=== PATIENT | male | born 1985 | race Caucasian/White ===

== ENCOUNTER 2019-01-31 08:25 | Emergency (ER) | payer MEDICAID ==
[~2019-01-31] VITALS: Ht 190.5 cm; Wt 151.4 kg
[~2019-01-31 08:25] MED LIST: CYCL-1 PO; HYDR-3965 PO; PENI500T2 PO
[2019-01-31 09:18] LABS: BASOPHILS % (AUTO) 0.3 % (0-1); EOSINOPHILS # (AUTO) 0.1 X10'3 (0-0.9); EOSINOPHILS % (AUTO) 0.5 % (0-6); HEMATOCRIT 44.7 % (42.0-52.0); HEMOGLOBIN 15.6 g/dl (14.0-17.9); LYMPHOCYTES % (AUTO) 7.4 % (21-51); MEAN CORPUSCULAR HEMOGLOBIN 29.5 PG (27.0-31.0); MEAN CORPUSCULAR HGB CONC 34.9 g/dL (33.0-36.5); MEAN CORPUSCULAR VOLUME 84.6 FL (78-98); MEAN PLATELET VOLUME 9.9 FL (7.4-10.4); MONOCYTES # (AUTO) 1.1 X10'3 (0-0.9); NEUTROPHILS # (AUTO) 11.7 X10'3 (1.8-7.7); NEUTROPHILS % (AUTO) 83.8 % (42-75); PLATELET COUNT 224 X10'3 (140-440); RED BLOOD COUNT 5.28 X10'6 (4.70-6.10); RED CELL DISTRIBUTION WIDTH 13.1 % (11.5-14.5)
[2019-01-31 09:25] LABS: PARTIAL THROMBOPLASTIN TIME 32 SECONDS (22-32)
[2019-01-31 09:36] LABS: ALANINE AMINOTRANSFERASE 33 U/L (12-78); ALBUMIN 3.6 G/DL (3.4-5.0); ALBUMIN/GLOBULIN RATIO 0.8 (1.1-1.5); ALKALINE PHOSPHATASE 89 IU/L (46-116); ANION GAP 14 (8-16); ASPARTATE AMINO TRANSFERASE 14 U/L (10-37); BILIRUBIN,TOTAL 1.1 MG/DL (0.1-1.0); BLOOD UREA NITROGEN 12 MG/DL (7-18); CALCIUM 9.1 MG/DL (8.5-10.1); CHLORIDE 104 MMOL/L (99-107); GLUCOSE 114 MG/DL (70-104); POTASSIUM 3.9 MMOL/L (3.5-5.1); SODIUM 135 MMOL/L (135-145); TOTAL CARBON DIOXIDE 17.5 MMOL/L (24-32); TOTAL PROTEIN 8.2 G/DL (6.4-8.2); eGFR 69 ML/MIN
[2019-01-31 09:46] LABS: GLUCOSE, URINE NEGATIVE (Neg); KETONES,URINE 40 mg/dl (Neg); LEUKOCYTE ESTERASE ,URINE NEGATIVE (Neg); NITRITES, URINE NEGATIVE (Neg); OCCULT BLOOD,URINE NEGATIVE (Neg); PH,URINE 6.5 (4.8-8.0); PROTEIN,URINE TRACE mg/dl (Neg)
[2019-01-31 09:47] LABS: UA COLLECTION TYPE URINAL
[2019-01-31 09:48] LABS: CLARITY,URINE SLIGHTLY CLOUDY (Clear); COLOR,URINE Amber (Yellow)
--- NOTE | 2019-01-31 09:51 | NUR ---
gaspersara has not been feeling well: right throat neck pain, not eating or drinking well for 2-3 days: states difficulty swallowing, right neck moderately swollen urine dark pauly, sepsis protocol ordered, discussed plan of care with md including weight and fluids
--- NOTE | 2019-01-31 09:52 | NUR ---
dr mccall stated "no fluids"
[2019-01-31 09:59] LABS: SQUAMOUS EPITHELIAL CELL,UR MODERATE /LPF (FEW)
[2019-01-31 10:00] LABS: BACTERIA,URINE FEW /HPF (Neg); HYALINE CASTS 0-3 /LPF (NEGATIVE); MUCUS STRANDS MODERATE /LPF (Neg); WBC,URINE 0-4 /HPF (0-4)
[2019-01-31] MEDS ORDERED: iohexol 300mg/ml 100ml inj. ONE (10:06)
--- NOTE | 2019-01-31 10:18 | NUR ---
to ct scan
[2019-01-31] MEDS ORDERED: dexamethasone sod phosphate 10mg/ml inj IV STA (11:19)
[2019-01-31] MEDS ORDERED: CLINDAMYCIN/D5W 900mg/50ml 50 ML IV ONE (11:20)
[2019-01-31] MEDS ORDERED: normal saline 1000ml 1,000 ML IV ONE ×2 (12:00)
[2019-01-31] MEDS ORDERED: metroNIDAZOLE-Flagyl 500mg/NS 100 ML IV STA (12:03)
[2019-01-31] MEDS ORDERED: ondansetron/PF 4mg/2ml inj IV ONE (12:05)
[2019-01-31] MEDS ORDERED: morphine 4 MG/ML inj SYRINge IV ONE ×2 (12:05→13:05)
[2019-01-31] MEDS ORDERED: normal saline 1000ML IV soln IVB ONE (12:05)
--- NOTE | 2019-01-31 14:23 | NUR ---
Mother at bedside, patient sweaty, elevated temp, dr nikky mejia
[2019-01-31] MEDS ORDERED: ketorolac trometh. 30mg/ml inj. IV ONE (14:35)
[2019-01-31] MEDS ORDERED: ketorolac tromethamine 15mg/ml inj. IV ONE (14:40)
--- NOTE | 2019-01-31 14:48 | NUR ---
SPOKE TO CHAZ FROM [facility] CALLED FROM [phone]: PATIENT GOING TO [facility] ROOM 226A PHONE FOR REPORT [phone]
--- NOTE | 2019-01-31 14:57 | NUR ---
mother long [phone]
--- NOTE | 2019-01-31 15:13 | NUR ---
CALLING REPORT [phone]: Keny maynard 2e
--- NOTE | 2019-01-31 15:20 | NUR ---
patient going to [facility] room 226A, report given to Keny maynard ON
--- NOTE | 2019-01-31 16:19 | NUR ---
CALLED [facility] FOR ETA UPDATE. INFORMED THAT PATIENT HAS A SCHEDULED TRANSPORT FOR 1700.
--- NOTE | 2019-01-31 17:31 | NUR ---
ADDITIONAL CALL TO [facility], TOLD THAT WE DID NOT HAVE A SCHEDULE TRANSPORT AT 1700. STILL AWAITING CALLS TO BE AT LEVELS FOR TRANSFER. NOT ETA.
--- NOTE | 2019-01-31 18:19 | NUR ---
EMS HERE TO TRANSFER PATIENT TO [facility]. REPORT TO EMS PERSONNEL. PATIENT DEPARTED FROM ER PER CHIRAG, WITH EMS PERSONNEL IN GOOD CONDITION. MOM LEFT AND WILL BE DRIVING TO [facility] TO MEET THE AMBULANCE, AND HER SON.
--- NOTE | 2019-01-31 18:23 | NUR ---
jaqui perez via ems report to coppersmith apprentice
[2019-01-31 18:25] VITALS: BP 121/69
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
== END 2019-01-31 18:28 | disposition short-term general hospital (02) ==
LOC: ER 08:25
DX: R59.1 Generalized enlarged lymph nodes (principal); R06.02 Shortness of breath; E66.01 Morbid (severe) obesity due to excess calories; Z68.41 Body mass index [BMI] 40.0-44.9, adult; Z79.899 Other long term (current) drug therapy
CPT/HCPCS: 36415; 70491; 71045; 80053; 81001; 83605; 84145; 85025; 85610; 85730; 87040; 96365; 96368; 96375; 96376; 99285; J1100; J1885; J2270; J2405; J3490; J7030; Q9967

== ENCOUNTER 2019-02-03 12:17 | Emergency (ER) | payer MEDICAID ==
[~2019-02-03] VITALS: Ht 190.5 cm; Wt 153.2 kg
[2019-02-03 13:36] LABS: CLARITY,URINE CLOUDY (Clear); COLOR,URINE BROWN (Yellow); GLUCOSE, URINE NEGATIVE (Neg); KETONES,URINE NEGATIVE (Neg); LEUKOCYTE ESTERASE ,URINE NEGATIVE (Neg); NITRITES, URINE NEGATIVE (Neg); OCCULT BLOOD,URINE LARGE (Neg); PH,URINE 6.5 (4.8-8.0); PROTEIN,URINE TRACE mg/dl (Neg); UA COLLECTION TYPE NON-SPECIFIED
[2019-02-03] MEDS ORDERED: ketorolac trometh inj. 60 MG/2 ML VIAL IM ONE (13:40)
[2019-02-03 13:43] LABS: RBC,URINE TNTC /HPF (0-2); WBC,URINE 0-4 /HPF (0-4)
[2019-02-03 13:44] LABS: BACTERIA,URINE NONE SEEN /HPF (Neg); MUCUS STRANDS FEW /LPF (Neg); SQUAMOUS EPITHELIAL CELL,UR FEW /LPF (FEW)
[2019-02-03 14:23] LABS: BASOPHILS % (AUTO) 0.4 % (0-1); EOSINOPHILS % (AUTO) 0.4 % (0-6); HEMATOCRIT 43.6 % (42.0-52.0); HEMOGLOBIN 14.8 g/dl (14.0-17.9); LYMPHOCYTES # (AUTO) 1.3 X10'3 (1.1-4.8); LYMPHOCYTES % (AUTO) 16.3 % (21-51); MEAN CORPUSCULAR HEMOGLOBIN 28.8 PG (27.0-31.0); MEAN CORPUSCULAR VOLUME 84.6 FL (78-98); MEAN PLATELET VOLUME 9.8 FL (7.4-10.4); MONOCYTES # (AUTO) 0.6 X10'3 (0-0.9); NEUTROPHILS % (AUTO) 75.9 % (42-75); PLATELET COUNT 270 X10'3 (140-440); RED BLOOD COUNT 5.15 X10'6 (4.70-6.10); RED CELL DISTRIBUTION WIDTH 13.3 % (11.5-14.5); WHITE BLOOD COUNT 7.9 X10'3 (4.5-11.0)
[2019-02-03] MEDS ORDERED: FLO0.4C PO (14:33)
[2019-02-03 14:38] LABS: ALANINE AMINOTRANSFERASE 106 U/L (12-78); ALBUMIN 3.2 G/DL (3.4-5.0); ALBUMIN/GLOBULIN RATIO 0.7 (1.1-1.5); ALKALINE PHOSPHATASE 78 IU/L (46-116); ANION GAP 11 (8-16); ASPARTATE AMINO TRANSFERASE 41 U/L (10-37); BILIRUBIN,TOTAL 0.3 MG/DL (0.1-1.0); BLOOD UREA NITROGEN 12 MG/DL (7-18); BUN/CREATININE RATIO 10.8 (5.4-32.0); CHLORIDE 108 MMOL/L (99-107); CREATININE 1.11 MG/DL (0.60-1.10); GLUCOSE 92 MG/DL (70-104); POTASSIUM 3.6 MMOL/L (3.5-5.1); SODIUM 140 MMOL/L (135-145); TOTAL CARBON DIOXIDE 21.1 MMOL/L (24-32); TOTAL PROTEIN 7.9 G/DL (6.4-8.2); eGFR 76 ML/MIN
[2019-02-03 15:12] VITALS: BP 163/78
== END 2019-02-03 15:13 | disposition home or self-care (01) ==
LOC: ER 12:18
DX: R31.9 Hematuria, unspecified (principal); R10.9 Unspecified abdominal pain; R61 Generalized hyperhidrosis; R68.83 Chills (without fever); J45.909 Unspecified asthma, uncomplicated; Z79.899 Other long term (current) drug therapy
CPT/HCPCS: 36415; 74176; 80053; 81001; 85025; 96372; 99284; J1885

== ENCOUNTER 2019-03-27 10:34 | Emergency (ER) | payer MEDICAID ==
[~2019-03-27] VITALS: Ht 188 cm; Wt 144.0 kg
[2019-03-27 11:05] LABS: BASOPHILS # (AUTO) 0.1 X10'3 (0-0.2); BASOPHILS % (AUTO) 0.7 % (0-1); EOSINOPHILS # (AUTO) 0.2 X10'3 (0-0.9); HEMATOCRIT 49.6 % (42.0-52.0); LYMPHOCYTES # (AUTO) 1.6 X10'3 (1.1-4.8); LYMPHOCYTES % (AUTO) 19.5 % (21-51); MEAN CORPUSCULAR HEMOGLOBIN 29.4 PG (27.0-31.0); MEAN CORPUSCULAR HGB CONC 34.3 g/dL (33.0-36.5); MEAN CORPUSCULAR VOLUME 85.8 FL (78-98); MEAN PLATELET VOLUME 10.1 FL (7.4-10.4); MONOCYTES # (AUTO) 0.4 X10'3 (0-0.9); MONOCYTES % (AUTO) 5.1 % (2-12); NEUTROPHILS % (AUTO) 72.7 % (42-75); PLATELET COUNT 207 X10'3 (140-440); RED BLOOD COUNT 5.78 X10'6 (4.70-6.10); RED CELL DISTRIBUTION WIDTH 14.1 % (11.5-14.5); WHITE BLOOD COUNT 8.2 X10'3 (4.5-11.0)
[2019-03-27 11:21] LABS: ALANINE AMINOTRANSFERASE 66 U/L (12-78); ALBUMIN 3.8 G/DL (3.4-5.0); ALKALINE PHOSPHATASE 81 IU/L (46-116); ANION GAP 11 (8-16); ASPARTATE AMINO TRANSFERASE 26 U/L (10-37); BILIRUBIN,TOTAL 0.6 MG/DL (0.1-1.0); BLOOD UREA NITROGEN 8 MG/DL (7-18); BUN/CREATININE RATIO 6.6 (5.4-32.0); CALCIUM 9.2 MG/DL (8.5-10.1); CHLORIDE 108 MMOL/L (99-107); CREATININE 1.22 MG/DL (0.60-1.10); GLUCOSE 107 MG/DL (70-104); POTASSIUM 3.7 MMOL/L (3.5-5.1); SODIUM 144 MMOL/L (135-145); TOTAL CARBON DIOXIDE 24.7 MMOL/L (24-32); TOTAL PROTEIN 7.7 G/DL (6.4-8.2); eGFR 68 ML/MIN
[2019-03-27 11:30] LABS: ETHANOL < 0.010 GM/DL (0.0-0.010)
--- NOTE | 2019-03-27 11:50 | NUR ---
Pt transferred from main ER to ER overflow bed 23.
--- NOTE | 2019-03-27 11:55 | NUR ---
Urine collected and sent.
[2019-03-27 12:12] LABS: CLARITY,URINE SLIGHTLY CLOUDY (Clear); COLOR,URINE YELLOW (Yellow); GLUCOSE, URINE NEGATIVE (Neg); KETONES,URINE NEGATIVE (Neg); LEUKOCYTE ESTERASE ,URINE NEGATIVE (Neg); NITRITES, URINE NEGATIVE (Neg); OCCULT BLOOD,URINE NEGATIVE (Neg); PH,URINE 7.5 (4.8-8.0); PROTEIN,URINE NEGATIVE (Neg); UROBILINOGEN,URINE 0.2 E.U/dL (0.2-1.0)
[2019-03-27 12:13] LABS: UA COLLECTION TYPE NON-SPECIFIED
[2019-03-27 12:21] LABS: SQUAMOUS EPITHELIAL CELL,UR MODERATE /LPF (FEW)
[2019-03-27 12:22] LABS: BACTERIA,URINE FEW /HPF (Neg); RBC,URINE 0-2 /HPF (0-2); WBC,URINE 0-4 /HPF (0-4)
[2019-03-27 12:33] LABS: URINE AMPHETAMINE SCREEN NEGATIVE (Neg); URINE BARBITUATE SCREEN NEGATIVE (Neg); URINE BENZODIAZEPINES SCREEN NEGATIVE (Neg); URINE CANNABINOID SCREEN NEGATIVE (Neg); URINE COCAINE SCREEN NEGATIVE (Neg); URINE METHADONE SCREEN NEGATIVE (Neg); URINE OPIATE SCREEN NEGATIVE (Neg); URINE PHENCYCLIDINE SCREEN NEGATIVE (Neg)
[2019-03-27] MEDS ORDERED: VENL37.55 PO (12:48)
[2019-03-27] MEDS ORDERED: ZOLP12.52 PO (12:48)
[2019-03-27] MEDS ORDERED: LORA10TA7 PO (12:48)
[2019-03-27] MEDS ORDERED: CHOL10002 PO (12:48)
[2019-03-27] MEDS ORDERED: DOCU100C41 PO (12:48)
[2019-03-27] MEDS ORDERED: FLO0.4C PO (12:48)
[2019-03-27] MEDS ORDERED: DULO-31 PO (12:48)
[2019-03-27] MEDS ORDERED: ARIP15TA3 PO (12:48)
[2019-03-27] MEDS ORDERED: SENN-162 PO (12:48)
[2019-03-27] MEDS ORDERED: BUSP30TA2 PO (12:48)
[2019-03-27] MEDS ORDERED: DULO60CA45 PO (12:48)
[2019-03-27] MEDS ORDERED: TOP100T PO ×2 (12:48)
[2019-03-27] MEDS ORDERED: PROP20TA6 PO (12:48)
[2019-03-27] MEDS ORDERED: METF500T20 PO (12:48)
[2019-03-27] MEDS ORDERED: MONT10TA21 PO (12:48)
[2019-03-27] MEDS ORDERED: MOME13HF PO (13:22)
[2019-03-27] MEDS ORDERED: ALBU8.5H8 IH (13:22)
[2019-03-27] MEDS ORDERED: docusate sod 100mg capsule PO PRN (13:40)
[2019-03-27] MEDS ORDERED: sennosides 8.6mg tablet PO PRN (13:40)
[2019-03-27] MEDS ORDERED: zolpidem 5mg tablet PO PRN (13:40)
--- NOTE | 2019-03-27 13:55 | NUR ---
Leonard Hawley [phone] ([facility] worker.) Pt brought to ER by his Re[facility] worker. He had driven him to a PCP appt with Dr Mcmahon then stated he wasn't feeling well emotionally so he was driven to see his therapist at [facility]. Pt is autistic and a client of [facility]. Pt told his therapist that he was having increased depression withi thoughts of hanging himself. Therapist sent him to ER for eval. Pt rates his depression at an 8/10 with continued thoughts of hanging himself. Pt contracts for safety here. Pt denies HI/AH/VH.
--- NOTE | 2019-03-27 15:05 | NUR ---
Pt has sleep apnea and uses a CPAP at home, notified RT that he will need a CPAP here tonight. Pt has 2 inhalers at home, Dulera which he uses routinely and prn albuteral. Instructed pt to call family to see if anyone can bring in his inhalers. Asked him to let us know if he starts feeling SOB as we could do prn nebulizer treatments for him here if needed.
--- NOTE | 2019-03-27 15:07 | NUR ---
Pt has had recent changes in his psych meds with Cymbalta being increased, Abilify added and titrated up, and Effexor added. Pt lives at home with his mother in [place]. Mom is physically disabled and does not work. Pt is on Metformin but his A1c has been good and his PCP is considering D/c'ing it. Pt does not check his blood sugar at home. Pt expressed feeling uncomfortable going to his day program, states that no one talks to him, they just ignore him. Though pt believes the main reason for his increased depression and suicidal thoughts is due to the recent medication changes. Pt's Re[facility] worker is available to transport him home if needed. Worker and mom would like to be notified if pt transferred somewhere.
--- NOTE | 2019-03-27 15:53 | NUR ---
Pt is being evaluated by [facility].
--- NOTE | 2019-03-27 16:05 | NUR ---
[facility] has decided to place pt on a 5150 hold.
--- NOTE | 2019-03-27 17:39 | NUR ---
Pt lying in bed on his left side resting.
--- NOTE | 2019-03-27 19:30 | NUR ---
One to one with the patient to assess severity of depressive symptoms and self harm risk. The patient's affect is very flat and he gave no eye contact during the interview. His replies were slow, monotone and minimal. He stated that his anxiety was very high. He reports decreased energy and decreased appetite and ate very little of his evening meal. He reports his mood is "not that great" and he has been having suicidal thoughts "too many times to count" in the past several days. He states his plan is to hang himself. He is stating he will be safe here in the ER. He is placed directly in front of the nursing station for constant supervision.
[2019-03-27] MEDS ORDERED: topiramate 100mg tablet PO SCH (21:00)
[2019-03-27] MEDS ORDERED: ARIPIPRAZOLE 15 MG TABLET PO SCH (21:00)
[2019-03-27] MEDS ORDERED: busPIRone 15mg tablet PO SCH (21:00)
[2019-03-27] MEDS ORDERED: montelukast 10mg tablet PO SCH (21:00)
--- NOTE | 2019-03-27 21:13 | NUR ---
The patient was compliant with his medications. He is cooperative with the staff. Respiratory was paged to set up patient on a c pap. He appears to be sleeping at this time.
--- NOTE | 2019-03-27 23:29 | NUR ---
The patient appears to be asleep
--- NOTE | 2019-03-28 00:59 | NUR ---
The patient appears to be sleeping at this time.
--- NOTE | 2019-03-28 02:49 | NUR ---
THe patient appears to be sleeping
--- NOTE | 2019-03-28 05:08 | NUR ---
The patient appears to have been sleeping well throughout the night.
[2019-03-28 05:34] VITALS: BP 139/77
--- NOTE | 2019-03-28 06:40 | NUR ---
Patient sleeping supine with c-pap machine. No distress observed. Continue to monitor.
[2019-03-28] MEDS ORDERED: tamsulosin 0.4mg capsule PO SCH (08:00)
[2019-03-28] MEDS ORDERED: propranolol 10mg tablet PO SCH (08:00)
[2019-03-28] MEDS ORDERED: loratadine 10mg tablet PO SCH (08:00)
[2019-03-28] MEDS ORDERED: venlafaxine XR 37.5mg cap (Q24H) PO SCH (08:00)
[2019-03-28] MEDS ORDERED: vitamin D (cholecalciferol) 1,000 unit tablet PO SCH (08:00)
[2019-03-28] MEDS ORDERED: metFORMIN 500mg tablet PO SCH (08:00)
[2019-03-28] MEDS ORDERED: duloxetine 30mg CAPSULE.DR PO SCH ×2 (08:00)
[2019-03-28] MEDS ORDERED: topiramate 100mg tablet PO SCH (08:00)
--- NOTE | 2019-03-28 08:15 | NUR ---
Patient sitting up eating breakfast. No distress observed. Continue to monitor.
--- NOTE | 2019-03-28 08:40 | NUR ---
RN 1:1. Patient does not make eye contact. Patient is soft spoken and answers are short. Patient states he still feels like hurting himself. Patient's plan is to hang himself. Continue to monitor.
--- NOTE | 2019-03-28 11:15 | NUR ---
Patient reclining in bed, awake. No distress observed. Continue to monitor.
--- NOTE | 2019-03-28 13:00 | NUR ---
Patient eating lunch. No distress observed. Continue to monitor.
--- NOTE | 2019-03-28 13:15 | NUR ---
Patient signed consents for [facility]. No distress observed. Continue to monitor.
== END 2019-03-28 13:35 ==
LOC: ER 10:35
DX: F32.9 Major depressive disorder, single episode, unspecified (principal); J45.909 Unspecified asthma, uncomplicated; F41.9 Anxiety disorder, unspecified; Z87.891 Personal history of nicotine dependence; Z79.84 Long term (current) use of oral hypoglycemic drugs; Z79.899 Other long term (current) drug therapy
CPT/HCPCS: 36415; 80053; 80305; 80320; 81001; 84443; 85025; 94660; 94760; 99285

== ENCOUNTER 2019-03-28 13:09 | Inpatient (IN) | payer MEDICAID ==
[~2019-03-28] VITALS: Ht 188 cm; Wt 140.3 kg
[~2019-03-28 13:09] MED LIST changes: +ALBU8.5H8 IH; +ARIP15TA3 PO; +BUSP30TA2 PO; +CHOL10002 PO; -CYCL-1 PO; +DOCU100C41 PO; +DULO-31 PO; +DULO60CA45 PO; +FLO0.4C PO; -HYDR-3965 PO; +LORA10TA7 PO; +METF500T20 PO; +MOME13HF PO; +MONT10TA21 PO; -PENI500T2 PO; +PROP20TA6 PO; +SENN-162 PO; +TOP100T PO; +VENL37.55 PO; +ZOLP12.52 PO
--- NOTE | 2019-03-28 14:48 | NUR ---
ADMIT NOTE Pt admitted from [facility] @ 1448 on a 5150 for DTS w/SI to hang self. Patient was brought into ED for an evaluation of depression and suicide ideation. He reports a long history of depression, is seen at [facility], and takes medications, reports that he has not missed any doses. Nevertheless, the patient reports feeling more depressed, more anxious, and having suicidal thoughts. He reports he has not done anything to harm himself yet, but is tempted to hang himself. Patient has no medical complaints. Medical Hx includes Type II DM, high fx Autism, Sleep Apnea and chronic depression. Personal property inventoried and signed per staff, Misti and Nasim BEASLEY. Pt does not smoke. Med Rec completed.
[2019-03-28 16:15] VITALS: BP 135/63
[2019-03-28] MEDS ORDERED: sennosides 8.6mg tablet PO PRN (16:45)
[2019-03-28] MEDS ORDERED: FLU VACC QS 2019-20 (6 MOS UP) 60 MCG/0.5 ML VIAL IMVAC ONE (17:00)
[2019-03-28] MEDS ORDERED: albuterol 2.5 MG/3 ML nebule NEB PRN (17:45)
[2019-03-28] MEDS ORDERED: hydrOXYzine 25 MG tablet PO PRN (19:25)
[2019-03-28 20:00] VITALS: BP 134/63
[2019-03-28] MEDS: albuterol 2.5 MG/3 ML nebule NEB SCH (20:48)
[2019-03-28] MEDS: budesonide 0.5mg/2ml UD nebule IH SCH (20:48)
[2019-03-28] MEDS ORDERED: ARIPIPRAZOLE 15 MG TABLET PO SCH (21:00)
[2019-03-28] MEDS ORDERED: METFORMIN 500 MG PO SCH (21:00)
[2019-03-28] MEDS: metFORMIN 500mg tablet PO SCH (21:14)
[2019-03-28] MEDS: topiramate 100mg tablet PO SCH (21:14)
[2019-03-28] MEDS: zolpidem 5mg tablet PO PRN (21:14)
[2019-03-28] MEDS: montelukast 10mg tablet PO SCH (21:14)
[2019-03-28] MEDS: busPIRone 15mg tablet PO SCH (21:14)
[2019-03-29] MEDS: albuterol 2.5 MG/3 ML nebule NEB SCH ×4 (03:14→20:51)
--- NOTE | 2019-03-29 04:07 | NUR ---
Nursing Progress Note: Legal hold: 5150 Client on voluntary/involuntary status for DTS. Report received from nurse with use of SBAR from ELIO Bullock. Why are they here: Patient was brought into ED for an evaluation of depression and suicide ideation. He reports a long history of depression, is seen at [facility], and takes medications, reports that he has not missed any doses. Nevertheless, the patient reports feeling more depressed, more anxious, and having suicidal thoughts. He reports he has not done anything to harm himself yet, but is tempted to hang himself. Assessment: What happened this shift? Patient on the unit in the Recreation room this evening. He appears depressed, does not makes eye contact and speaks softly. He reports that his depression is 8/10 and that he still has SI, but denies plan intent and reports feeling safe here on the unit. Patient pretty much keeps to himself and goes to bed early this evening right after medication pass. Cpap machine is set up by RT and is in use while patient is in bed sleeping this evening. S/I, H/I:Denies HI still has SI but denied plan or intent A/VH: Denies Sleep: Currently sleeping, see sleep assessment ADL's: Independent Group attendance: No groups this shift Were meds taken: Yes Any med S/E None noted or observed Mental Status Exam Appearance:Well groomed Eye contact: Poor Behavior: Calm, isolative Speech:Soft, normal rate rhythm Mood: Depressed Affect:Congruent to mood Thought process: Linear Thought Content: getting nighttime medications Cognition: A&Ox3 Insight: Fair Judgment:Fair Interventions PRN's used: Scarlett Therapeutic interventions: :1 therapeutic assessment, maintained safe therapeutic milieu, provided active listening with positive reinforcement, provided medication administration/education/monitoring as needed; Q15 safety checks. Restraints/seclusion/emergency medication:None Justification of Continued Inpatient Treatment: Continued therapeutic support and medication management needed to provide stabilization, prevent decompensation, improve coping mechanisms decreasing risk to patient and re-admittance.
[2019-03-29 07:32] VITALS: BP 124/71
[2019-03-29] MEDS ORDERED: tamsulosin 0.4mg capsule PO SCH (08:00)
[2019-03-29] MEDS: duloxetine 30mg CAPSULE.DR PO SCH ×2 (08:15)
[2019-03-29] MEDS: vitamin D (cholecalciferol) 1,000 unit tablet PO SCH (08:15)
[2019-03-29] MEDS: venlafaxine XR 37.5mg cap (Q24H) PO SCH (08:16)
[2019-03-29] MEDS: propranolol 10mg tablet PO SCH (08:16)
[2019-03-29] MEDS: loratadine 10mg tablet PO SCH (08:16)
[2019-03-29] MEDS: topiramate 100mg tablet PO SCH ×2 (08:16→20:41)
[2019-03-29] MEDS: budesonide 0.5mg/2ml UD nebule IH SCH ×2 (08:54→20:51)
--- NOTE | 2019-03-29 11:32 | NUR ---
I have reviewed and agree with all medications administered and interventions performed by [employer] Student Kamaljit Helm.
--- NOTE | 2019-03-29 14:23 | NUR ---
Nursing Progress Note: Legal hold: 5150 Client on voluntary/involuntary status for DTS. Report received from nurse with use of SBAR from ELIO Gonzalez. Why are they here: Patient was brought into ED for an evaluation of depression and suicide ideation. He reports a long history of depression, is seen at [facility], and takes medications, reports that he has not missed any doses. Nevertheless, the patient reports feeling more depressed, more anxious, and having suicidal thoughts. He reports he has not done anything to harm himself yet, but is tempted to hang himself. Assessment: What happened this shift? The patient was asleep at change of shift. He awakened and came to breakfast with his peers. Eating well. C/O feeling depressed and sad. Reports feeling safe on the unit and is having no current suicidal thoughts. He attends groups including going out on the patio with others. Took a shower. Stated he did not want to talk at length today about his feelings. Depressed mood with very flat affect. S/I, H/I:Denies A/VH: Denies Sleep: None ADL's: Independent Group attendance: yes all Were meds taken: Yes Any med S/E None noted or observed Mental Status Exam Appearance:Well groomed Eye contact: Poor Behavior: Calm, isolative Speech:Soft, normal rate rhythm Mood: Depressed Affect: flat Thought process: Linear Thought Content: medications, showering, did not want to discuss further Cognition: A&Ox4 Insight: poor Judgment:Fair Interventions PRN's used: None Therapeutic interventions: :1 therapeutic assessment, maintained safe therapeutic milieu, provided active listening with positive reinforcement, provided medication administration/education/monitoring as needed; Q15 safety checks. Restraints/seclusion/emergency medication:None Justification of Continued Inpatient Treatment: Continued therapeutic support and medication management needed to provide stabilization, prevent decompensation, improve coping mechanisms decreasing risk to patient and re-admittance.
[2019-03-29 19:54] VITALS: BP 114/67
[2019-03-29 20:03] VITALS: BP 114/67
[2019-03-29] MEDS: ARIPIPRAZOLE 15 MG TABLET PO SCH (20:40)
[2019-03-29] MEDS: montelukast 10mg tablet PO SCH (20:41)
[2019-03-29] MEDS: zolpidem 5mg tablet PO PRN (20:41)
[2019-03-29] MEDS: sennosides 8.6mg tablet PO SCH (20:41)
[2019-03-29] MEDS: busPIRone 15mg tablet PO SCH (20:41)
[2019-03-29] MEDS: metFORMIN 500mg tablet PO SCH (20:41)
--- NOTE | 2019-03-29 23:15 | NUR ---
Nursing Progress Note: Legal hold: 5150 Client on voluntary/involuntary status for DTS. Report received from nurse with use of SBAR from ELIO Vargas. Why are they here: Patient was brought into ED for an evaluation of depression and suicide ideation. He reports a long history of depression, is seen at [facility], and takes medications, reports that he has not missed any doses. Nevertheless, the patient reports feeling more depressed, more anxious, and having suicidal thoughts. He reports he has not done anything to harm himself yet, but is tempted to hang himself. Assessment: What happened this shift? Patient is meeting with the Dr at change of shift. When in his room after talking to the Dr patient is agreeable for an assessment. He presents with a depressed, flat affect and keeps conversation to a minimum. He answers questions with one word responses and does not elaborate. He denies SI/HI, AH/VH but still does report feeling depressed and sad. He does eat snack in the group room with his peers but keeps to himself. He then spends the rest of his time isolating to his room in bed. Patient is compliant for all HS medications. S/I, H/I:Denies A/VH: Denies Sleep: None ADL's: Independent Group attendance: No groups this shift Were meds taken: Yes Any med S/E None noted or observed Mental Status Exam Appearance:Well groomed Eye contact: Poor Behavior: Calm, isolative Speech:Soft, normal rate rhythm Mood: Depressed Affect: Flat. congruent to mood Thought process: Linear Thought Content: reports being depressed/sad but will not elaborate Cognition: A&Ox4 Insight: Poor Judgment: Fair Interventions PRN's used: None Therapeutic interventions: 1:1 therapeutic assessment, maintained safe therapeutic milieu, provided active listening with positive reinforcement, provided medication administration/education/monitoring as needed; Q15 safety checks. Restraints/seclusion/emergency medication:None Justification of Continued Inpatient Treatment: Continued therapeutic support and medication management needed to provide stabilization, prevent decompensation, improve coping mechanisms decreasing risk to patient and re-admittance.
[2019-03-30] MEDS: albuterol 2.5 MG/3 ML nebule NEB SCH ×4 (02:15→20:42)
[2019-03-30 07:14] LABS: CHOL/HDL RATIO 4.1 (0.00-4.99); CHOLESTEROL 146 MG/DL (0-200); HDL CHOLESTEROL 36 MG/DL (35-60); LDL CHOLESTEROL 103 MG/DL (50-100); TRIGLYCERIDES 131 MG/DL (20-135)
[2019-03-30] MEDS: topiramate 100mg tablet PO SCH ×2 (08:25→21:02)
[2019-03-30] MEDS: propranolol 10mg tablet PO SCH (08:25)
[2019-03-30] MEDS: duloxetine 30mg CAPSULE.DR PO SCH ×2 (08:25→08:26)
[2019-03-30] MEDS: vitamin D (cholecalciferol) 1,000 unit tablet PO SCH (08:25)
[2019-03-30] MEDS: venlafaxine XR 37.5mg cap (Q24H) PO SCH (08:26)
[2019-03-30] MEDS: loratadine 10mg tablet PO SCH (08:26)
[2019-03-30 08:47] VITALS: BP 139/86
[2019-03-30] MEDS: budesonide 0.5mg/2ml UD nebule IH SCH ×2 (09:05→20:42)
--- NOTE | 2019-03-30 14:10 | NUR ---
Nursing Progress Note: Legal hold: 5150 Client on involuntary status for DTS. Report received from nurse Roula RN with use of SBAR Why are they here: Patient was brought into ED for an evaluation of depression and suicide ideation. He reports a long history of depression, is seen at [facility], and takes medications, reports that he has not missed any doses. Nevertheless, the patient reports feeling more depressed, more anxious, and having suicidal thoughts. He reports he has not done anything to harm himself yet, but is tempted to hang himself. Assessment: What happened this shift? Patient up in the dining room sitting in the Community Rm waiting to go outside with the others around noon. Patient is present on the unit and during groups throughout the day. Pt occasionally seen on the bed isolating. Affect remains flat; mood depressed. He appears paranoid, frequently rolling his eyes way over too the sides looking as if someone might come up behind him. He denies feeling of being afraid. He mumbles quietly when spoke too. His responses to questions are brief yes or no answers. S/I, H/I:Denies A/VH: Denies Sleep: None ADL's: Independent Group attendance: Went to the outside group Were Meds taken: Yes Any med S/E None noted or observed Mental Status Exam Appearance:Well groomed Eye contact: Poor Behavior: Calm, isolative Speech: Soft, normal rate rhythm Mood: Depressed Affect: Flat. congruent to mood Thought process: Linear Thought Content: reports being depressed/sad but will not elaborate Cognition: A&Ox4 Insight: Poor Judgment: Fair Interventions PRN's used: None Therapeutic interventions: 1:1 therapeutic assessment, maintained safe therapeutic milieu, provided active listening with positive reinforcement, provided medication administration/education/monitoring as needed; Q15 safety checks. Restraints/seclusion/emergency medication:None Justification of Continued Inpatient Treatment: Continued therapeutic support and medication management needed to provide stabilization, prevent decompensation, improve coping mechanisms decreasing risk to patient and re-admittance.
[2019-03-30 19:41] VITALS: BP 119/70
[2019-03-30] MEDS ORDERED: venlafaxine XR 37.5mg cap (Q24H) PO ONE (20:00)
[2019-03-30] MEDS: sennosides 8.6mg tablet PO SCH (21:02)
[2019-03-30] MEDS: ARIPIPRAZOLE 15 MG TABLET PO SCH (21:02)
[2019-03-30] MEDS: busPIRone 15mg tablet PO SCH (21:02)
[2019-03-30] MEDS: montelukast 10mg tablet PO SCH (21:02)
[2019-03-30] MEDS: zolpidem 5mg tablet PO PRN (21:03)
[2019-03-30] MEDS: metFORMIN 500mg tablet PO SCH (21:03)
--- NOTE | 2019-03-31 01:21 | NUR ---
Nursing Progress Note: Legal hold: 5150 Client on involuntary status for DTS. Report received from nurse Sam RN with use of SBAR Why are they here: Patient was brought into ED for an evaluation of depression and suicide ideation. He reports a long history of depression, is seen at [facility], and takes medications, reports that he has not missed any doses. Nevertheless, the patient reports feeling more depressed, more anxious, and having suicidal thoughts. He reports he has not done anything to harm himself yet, but is tempted to hang himself. Assessment: What happened this shift? Patient in his room at the change of shift. He continues to isolate in the evenings not interacting with others. He does come out of his room this evening to visit with his mother and the Dr. at visiting hours. During patients 1:1 assessment he denies SI and depression but his affect remains depressed and flat. He does not attempt to make eye contact during assessment and keeps his conversation minimal and responds in one worded answers to questions. Patient is complaint with his HS medications and goes to bed directly after medication administration. S/I, H/I:Denies A/VH: Denies Sleep: None ADL's: Independent Group attendance: No groups this shift Were Meds taken: Yes Any med S/E None noted or observed Mental Status Exam Appearance:Well groomed Eye contact: Poor Behavior: Calm, isolative Speech: Soft, normal rate rhythm Mood: Depressed Affect: Flat. congruent to mood Thought process: Linear Thought Content: Denies depression however this does not appear congruent to patients affect and demeanor. Minimal conversation. Cognition: A&Ox4 Insight: Poor Judgment: Fair Interventions PRN's used: Ambien Therapeutic interventions: 1:1 therapeutic assessment, maintained safe therapeutic milieu, provided active listening with positive reinforcement, provided medication administration/education/monitoring as needed; Q15 safety checks. Restraints/seclusion/emergency medication:None Justification of Continued Inpatient Treatment: Continued therapeutic support and medication management needed to provide stabilization, prevent decompensation, improve coping mechanisms decreasing risk to patient and re-admittance.
[2019-03-31] MEDS: albuterol 2.5 MG/3 ML nebule NEB SCH ×4 (02:25→20:47)
[2019-03-31 07:37] VITALS: BP 115/53
[2019-03-31] MEDS ORDERED: venlafaxine XR 37.5mg cap (Q24H) PO SCH (08:00)
[2019-03-31] MEDS: duloxetine 30mg CAPSULE.DR PO SCH (08:32)
[2019-03-31] MEDS: topiramate 100mg tablet PO SCH ×2 (08:32→20:25)
[2019-03-31] MEDS: loratadine 10mg tablet PO SCH (08:32)
[2019-03-31] MEDS: vitamin D (cholecalciferol) 1,000 unit tablet PO SCH (08:33)
[2019-03-31] MEDS: propranolol 10mg tablet PO SCH ×2 (08:33→17:00)
[2019-03-31] MEDS: budesonide 0.5mg/2ml UD nebule IH SCH ×2 (09:09→20:47)
--- NOTE | 2019-03-31 14:25 | NUR ---
Nursing Progress Note: Ashwin Legal hold: 5150 Client on involuntary status for DTS. Report received from nurse ELIO Gonzalez with use of SBAR Why are they here: Patient was brought into ED for an evaluation of depression and suicide ideation. He reports a long history of depression, is seen at [facility], and takes medications, reports that he has not missed any doses. Nevertheless, the patient reports feeling more depressed, more anxious, and having suicidal thoughts. He reports he has not done anything to harm himself yet, but is tempted to hang himself. Assessment: What happened this shift? Patient in his room at the change of shift. He entered community room for breakfast and quickly returned to his room. During patients 1:1 assessment he denies SI and depression but his affect remains depressed and flat. He does not attempt to make eye contact during assessment and keeps his conversation minimal and responds in one worded answers to questions. He states he has not had a BM for several days. Abdomen soft, without pain, regular bowel sounds. Patient is complaint with his medications. Attended groups, when asked if he like them, he responded "No, I don't really like being around people" S/I, H/I:Denies A/VH: Denies Sleep: 8 ADL's: Independent Group attendance: yes Were Meds taken: Yes Any med S/E None noted or observed Mental Status Exam Appearance:Well groomed Eye contact: Poor Behavior: Calm, isolative Speech: Soft, normal rate rhythm Mood: Depressed Affect: Flat. congruent to mood Thought process: unable to determine, responds only with heads hakes or one word answers Thought Content: Denies depression however this does not appear congruent to patients affect and demeanor. Minimal conversation. Cognition: A&Ox4 Insight: Poor Judgment: Fair Interventions PRN's used: Therapeutic interventions: 1:1 therapeutic assessment, maintained safe therapeutic milieu, provided active listening with positive reinforcement, provided medication administration/education/monitoring as needed; Q15 safety checks. Restraints/seclusion/emergency medication:None Justification of Continued Inpatient Treatment: Continued therapeutic support and medication management needed to provide stabilization, prevent decompensation, improve coping mechanisms decreasing risk to patient and re-admittance. Addendum: 03/31/19 at 1808 by Aaliyah Marin RN patient c/o of inability to void since lunch. Bladder scan shows approximately 223 mL urine in bladder. Previously on flomaxnadine'd on admission. Dr. Camarillo to reorder and refer to hospitalist for consult.
[2019-03-31] MEDS ORDERED: venlafaxine XR 37.5mg cap (Q24H) PO ONE (14:45)
[2019-03-31] MEDS ORDERED: tamsulosin 0.4mg capsule PO ONE (18:15)
[2019-03-31 20:00] VITALS: BP 125/66
[2019-03-31] MEDS: docusate sod 100mg capsule PO PRN (20:23)
[2019-03-31] MEDS: montelukast 10mg tablet PO SCH (20:23)
[2019-03-31] MEDS: busPIRone 15mg tablet PO SCH (20:24)
[2019-03-31] MEDS: ARIPIPRAZOLE 15 MG TABLET PO SCH (20:24)
[2019-03-31] MEDS: metFORMIN 500mg tablet PO SCH (20:25)
[2019-03-31] MEDS: sennosides 8.6mg tablet PO SCH (20:25)
[2019-03-31] MEDS: zolpidem 5mg tablet PO PRN (20:27)
--- NOTE | 2019-04-01 00:08 | NUR ---
Nursing Progress Note: Legal hold: VOL Client on involuntary status for DTS. Report received from nurse Ashley RN with use of SBAR Why are they here: Patient was brought into ED for an evaluation of depression and suicide ideation. He reports a long history of depression, is seen at [facility], and takes medications, reports that he has not missed any doses. Nevertheless, the patient reports feeling more depressed, more anxious, and having suicidal thoughts. He reports he has not done anything to harm himself yet, but is tempted to hang himself. Assessment: What happened this shift? Pt remains solitary on the unit. He sits alone in the community room but does not engage with anyone. When approached he remains constricted and does not make eye contact. He has a depressed affect despite denying any depression. Pt states he had a good day but could not recall anything that he did today. When asked if he has had a BM or urinated he replies, "no." Pt encouraged to drink water and educated on staying hydrated. Pt verbalizes understanding. S/I, H/I:Denies A/VH: Denies Sleep: None ADL's: Independent Group attendance: No groups this shift Were Meds taken: Yes Any med S/E None noted or observed Mental Status Exam Appearance:Well groomed Eye contact: Poor Behavior: Calm, isolative Speech: Soft, normal rate rhythm Mood: Depressed Affect: Flat. congruent to mood Thought process: Linear Thought Content: Denies depression however this does not appear congruent to patients affect and demeanor. Minimal conversation. Cognition: A&Ox4 Insight: Poor Judgment: Fair Interventions PRN's used: none Therapeutic interventions: 1:1 therapeutic assessment, maintained safe therapeutic milieu, provided active listening with positive reinforcement, provided medication administration/education/monitoring as needed; Q15 safety checks. Restraints/seclusion/emergency medication:None Justification of Continued Inpatient Treatment: Continued therapeutic support and medication management needed to provide stabilization, prevent decompensation, improve coping mechanisms decreasing risk to patient and re-admittance.
[2019-04-01] MEDS: albuterol 2.5 MG/3 ML nebule NEB SCH ×4 (02:16→21:30)
[2019-04-01 07:30] VITALS: BP 114/60
[2019-04-01] MEDS: vitamin D (cholecalciferol) 1,000 unit tablet PO SCH (07:58)
[2019-04-01] MEDS: propranolol 10mg tablet PO SCH ×2 (07:58→17:39)
[2019-04-01] MEDS: topiramate 100mg tablet PO SCH ×2 (07:59→21:12)
[2019-04-01] MEDS: loratadine 10mg tablet PO SCH (07:59)
[2019-04-01] MEDS: venlafaxine XR 37.5mg cap (Q24H) PO SCH (07:59)
[2019-04-01] MEDS: duloxetine 30mg CAPSULE.DR PO SCH (07:59)
[2019-04-01] MEDS: budesonide 0.5mg/2ml UD nebule IH SCH ×2 (08:00→21:30)
[2019-04-01] MEDS: venlafaxine XR 75mg capsule (Q24H) PO SCH (08:01)
[2019-04-01] MEDS: docusate sod 100mg capsule PO PRN (08:38)
--- NOTE | 2019-04-01 14:30 | NUR ---
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 Duglas reports that pt experiences significant anxiety when he is around people but have been consistently attending 2x/wk and that he had wanted to attend more than 2x/week but [facility] is unable to provide transportation for pt to get from his home to the program's site. SS engaged [facility] family services manager in discussion re providing additional 1:1 support for pt at the program site. Per discussion, Duglas will ask the job coaches to check-in w/pt 2-3x/day and encourage him to go to any of the job coaches when he experiences increase of anxiety. Plan: SS will engage pt in discussion re his willingness/desire to increase his participation in [facility] services & support pt in addressing transportation issues to the program site; SS to continue to monitor and support pap activities. Addendum: 04/02/19 at 0839 by Marixa Sloan SS Amended: Links added.
--- NOTE | 2019-04-01 15:08 | NUR ---
Nursing Progress Note: Ashwin Legal hold: VOL Client on voluntary status for DTS. Report received from nurse ELIO Gonzalez with use of SBAR Why are they here: Patient was brought into ED for an evaluation of depression and suicide ideation. He reports a long history of depression, is seen at [facility], and takes medications, reports that he has not missed any doses. Nevertheless, the patient reports feeling more depressed, more anxious, and having suicidal thoughts. He reports he has not done anything to harm himself yet, but is tempted to hang himself. Assessment: What happened this shift? Patient sleeping soundly at change of shift. Cooperative with 1:1 physical and MH assessment. States he is still having difficulty urinating, but was able to empty bladder prior to going to bed. States he has not had a BM X 4 days, medicated with colace encouraged to drink more water. Medication compliant. Requested shower today, attended group and is seen out of room more frequently than previously. Denies SI, anxiety. Patient encouraged to attend afternoon group, he was in and out of the group. pt. states he is very uncomfortable in groups and does not like sharing in front of others. Explained that just attending without active participation will assist him in feeling more emotionally stable. pt. did report a BM following admin of Colace. S/I, H/I:Denies A/VH: Denies Sleep: 7.75 ADL's: Independent, showered today Group attendance: yes, expresses difficulty in participating Were Meds taken: Yes Any med S/E None noted or observed Mental Status Exam Appearance:Well groomed, showered today Eye contact: Poor but improving Behavior: Calm, less isolative seen regularly out of room Speech: Soft, normal rate rhythm Mood: Euthymic Affect: Blunted Thought process: Linear Thought Content: Personal needs Cognition: A&Ox4 Insight: Poor Judgment: Fair Interventions PRN's used: Colace Therapeutic interventions: 1:1 therapeutic assessment, maintained safe therapeutic milieu, provided active listening with positive reinforcement, provided medication administration/education/monitoring as needed; Q15 safety checks. Restraints/seclusion/emergency medication:None Justification of Continued Inpatient Treatment: Continued therapeutic support and medication management needed to provide stabilization, prevent decompensation, improve coping mechanisms decreasing risk to patient and re-admittance
--- NOTE | 2019-04-01 16:36 | NUR ---
ILS worker Leonard [phone] Will transport [facility]
[2019-04-01 20:00] VITALS: BP 139/97
[2019-04-01] MEDS: montelukast 10mg tablet PO SCH (21:09)
[2019-04-01] MEDS: sennosides 8.6mg tablet PO SCH (21:10)
[2019-04-01] MEDS: busPIRone 15mg tablet PO SCH (21:11)
[2019-04-01] MEDS: ARIPIPRAZOLE 15 MG TABLET PO SCH (21:11)
[2019-04-01] MEDS: metFORMIN 500mg tablet PO SCH (21:12)
[2019-04-01] MEDS: zolpidem 5mg tablet PO PRN (23:01)
--- NOTE | 2019-04-02 01:31 | NUR ---
Nursing Progress Note: Legal hold: VOL Client on involuntary status for DTS. Report received from nurse Ashley RN with use of SBAR Why are they here: Patient was brought into ED for an evaluation of depression and suicide ideation. He reports a long history of depression, is seen at [facility], and takes medications, reports that he has not missed any doses. Nevertheless, the patient reports feeling more depressed, more anxious, and having suicidal thoughts. He reports he has not done anything to harm himself yet, but is tempted to hang himself. Assessment: What happened this shift? Pt sits in the community room in the corner by himself. He looks down at the floor and does not engage with peers. PT states his day was "good." He said he did not go to groups or do art. Pt was encouraged to try to go to groups and assured that he would not be forced to participate. He replied, "yea maybe." S/I, H/I:Denies A/VH: Denies Sleep: None ADL's: Independent Group attendance: No groups this shift Were Meds taken: Yes Any med S/E None noted or observed Mental Status Exam Appearance:Well groomed Eye contact: Poor Behavior: Calm, isolative Speech: Soft, normal rate rhythm Mood: Depressed Affect: Flat. congruent to mood Thought process: Linear Thought Content: Denies depression however this does not appear congruent to patients affect and demeanor. Minimal conversation. Cognition: A&Ox4 Insight: Poor Judgment: Fair Interventions PRN's used: ambien Therapeutic interventions: 1:1 therapeutic assessment, maintained safe therapeutic milieu, provided active listening with positive reinforcement, provided medication administration/education/monitoring as needed; Q15 safety checks. Restraints/seclusion/emergency medication:None Justification of Continued Inpatient Treatment: Continued therapeutic support and medication management needed to provide stabilization, prevent decompensation, improve coping mechanisms decreasing risk to patient and re-admittance.
[2019-04-02] MEDS: albuterol 2.5 MG/3 ML nebule NEB SCH ×3 (03:26→14:43)
[2019-04-02] MEDS: budesonide 0.5mg/2ml UD nebule IH SCH (07:54)
[2019-04-02] MEDS: duloxetine 30mg CAPSULE.DR PO SCH (07:58)
[2019-04-02] MEDS: venlafaxine XR 75mg capsule (Q24H) PO SCH (07:58)
[2019-04-02] MEDS: venlafaxine XR 37.5mg cap (Q24H) PO SCH (07:58)
[2019-04-02] MEDS: loratadine 10mg tablet PO SCH (07:59)
[2019-04-02] MEDS: topiramate 100mg tablet PO SCH (07:59)
[2019-04-02] MEDS: propranolol 10mg tablet PO SCH (07:59)
[2019-04-02] MEDS: vitamin D (cholecalciferol) 1,000 unit tablet PO SCH (07:59)
[2019-04-02 08:00] VITALS: BP 105/69
--- NOTE | 2019-04-02 12:05 | NUR ---
Initial: Pt PO 75-100% most meals fluctuating 25% occasionally. LBM 04/01. No nutrition concerns at this time. Will continue to monitor. Rec: 1. continue carb controlled diet 2. routine bowel care Addendum: 04/02/19 at [address] Amended: Links added.
--- NOTE | 2019-04-02 12:57 | NUR ---
SS contacted pt's ILS worker, james heller informing him that pt is d/c-ing this afternoon and will need transportation home. Marixa Sloan [facility]#[id number] Addendum: 04/02/19 at 1259 by Marixa COELHO Amended: Links added.
[2019-04-02] MEDS ORDERED: VENL225T3 PO (13:10)
[2019-04-02] MEDS ORDERED: TOP100T PO (13:10)
[2019-04-02] MEDS ORDERED: BUSP30TA2 PO (13:10)
[2019-04-02] MEDS ORDERED: ARIP30TA7 PO (13:10)
[2019-04-02] MEDS ORDERED: SENN-162 PO (13:10)
[2019-04-02] MEDS ORDERED: PROP20TA6 PO (13:10)
--- NOTE | 2019-04-02 15:14 | NUR ---
Nursing Progress Note: Legal hold: N/A Client is on voluntary status Report received from nurse Roslyn RN with use of SBAR Why are they here: Patient was brought into ED for an evaluation of depression and suicide ideation. He reports a long history of depression, is seen at [facility], and takes medications, reports that he has not missed any doses. Nevertheless, the patient reports feeling more depressed, more anxious, and having suicidal thoughts. He reports he has not done anything to harm himself yet, but is tempted to hang himself. Assessment: What happened this shift? Pt stated that his depression was "a lot better" today, rated it at a 0/10, denied SI/HI/AH/VH. Pt stated that he felt the meds were working. Pt showered this morning. S/I, H/I:Pt denies A/VH: Pt denies Sleep Slept well per pt and noc shift report ADL's: Independent Group attendance: Yes Were Meds taken: Yes Any med S/E: None reported or observed Mental Status Exam Appearance: Neat, clean, dressed in street clothes. Eye contact: Fair Behavior: Calm, cooperative, mostly isolative to self, though makes needs known. Speech: Soft, normal rate rhythm Mood: "better" Affect: blunted Thought process: Linear Thought Content: Focused on discharge. Cognition: A&Ox4 Insight: Fair Judgment: Fair Interventions PRN's used: none Therapeutic interventions: 1:1 assessment, encouragement to express thoughts and feelings, active listening, medication administration/education/monitoring, encouragement to attend groups, discharge planning, Q15 min safety checks. Restraints/seclusion/emergency medication:None Justification of Continued Inpatient Treatment: Pt is being discharged home to mom today.
--- NOTE | 2019-04-02 16:30 | NUR ---
DISCHARGE NOTE: Pt discharged home to mom at 1615, picked up by his independent living worker Leonard, ambulated off of the unit accompanied by him. Discharge instructions including med changes, RX's, and follow up care reviewed with both pt and worker. New Rx's called into [facility] pharmacy #[id number]. Leonard expressed understanding of medications and follow up care, all belongings including medications stored in our pharmacy returned.
== END 2019-04-02 16:15 | disposition home or self-care (01) | DRG 751 ==
LOC: ADULT MH 13:39
PROVIDERS: ADMIT Psychiatry & Neurology Psychiatry; ATTEND Psychiatry & Neurology Psychiatry
PROC: 3E02340 Introduction of Influenza Vaccine into Muscle, Percutaneous Approach (ICD-10-PCS; 2019-03-28)
PROC: 5A09357 Assistance with Respiratory Ventilation, Less than 24 Consecutive Hours, Continuous Positive Airway Pressure (ICD-10-PCS; principal; 2019-03-29)
PROC: 5A09357 Assistance with Respiratory Ventilation, Less than 24 Consecutive Hours, Continuous Positive Airway Pressure (ICD-10-PCS; 2019-03-31)
PROC: 5A09357 Assistance with Respiratory Ventilation, Less than 24 Consecutive Hours, Continuous Positive Airway Pressure (ICD-10-PCS; 2019-04-01)
PROC: 5A09357 Assistance with Respiratory Ventilation, Less than 24 Consecutive Hours, Continuous Positive Airway Pressure (ICD-10-PCS; 2019-04-02)
DX: F33.2 Major depressive disorder, recurrent severe without psychotic features (principal); R45.851 Suicidal ideations; E11.9 Type 2 diabetes mellitus without complications; K76.0 Fatty (change of) liver, not elsewhere classified; F41.9 Anxiety disorder, unspecified; F84.0 Autistic disorder; I10 Essential (primary) hypertension; G47.30 Sleep apnea, unspecified; E66.9 Obesity, unspecified; J45.909 Unspecified asthma, uncomplicated; R33.9 Retention of urine, unspecified; F40.10 Social phobia, unspecified; K59.00 Constipation, unspecified; Z79.899 Other long term (current) drug therapy; Z23 Encounter for immunization; Z68.39 Body mass index [BMI] 39.0-39.9, adult
CPT/HCPCS: 36415; 80061; 83036; 87081; 94640; 94660; 94760; J7626; Q2037; Z7610